=== PATIENT | female | born 1935 | race Caucasian/White ===

== ENCOUNTER 2016-10-29 10:50 | Emergency (ER) | payer MEDICARE ==
--- NOTE | 2016-10-29 11:09 | ED.PDOC ---
History of Present Illness - General Chief Complaint: Neuro Symptoms/Deficits Stated Complaint: altered mental status Time Seen by Provider: 10/29/16 11:08 Source: patient, RN notes reviewed, Vital Signs reviewed, family - grand daughter Exam Limitations: no limitations - History of Present Illness Initial Comments: Granddaughter stated that her grandma was complaining of possible bladder infection yesterday but no medical attention was done took her oxybutynin for her oab but called up her daughter to drive her to hospital and was noted to be dis oriented to place and time by the grandauter then was drove here.On her questioning patient knows where she is able to recognized nurses and knew nurses name and according to patient had bad reaction to her oab medications since her insurance company doesnot pay for any other meds Timing/Duration: other - 2 days ago Severity: moderate Improving Factors: nothing Worsening Factors: nothing Associated Symptoms: denies symptoms Allergies/Adverse Reactions: Allergies Penicillin G Adverse Reaction (Verified 07/25/16 11:18) Home Medications: Ambulatory Orders Anastrozole [Arimidex] 1 mg PO DAILY 07/03/16 Chlorthalidone 12.5 mg PO DAILY 07/03/16 Lisinopril 20 mg PO BID 07/03/16 Meloxicam 15 mg PO DAILY 07/03/16 Metoprolol Tartrate 50 mg PO BID 07/03/16 Potassium Chloride [Micro-K] 20 meq PO DAILY 07/03/16 Pregabalin [Lyrica] 50 mg PO BEDTIME 10/29/16 Triazolam [Halcion] 0.25 mg PO BEDTIME 10/29/16 Review of Systems - Review of Systems Constitutional: States: no symptoms reported EENTM: States: no symptoms reported Respiratory: States: no symptoms reported Cardiology: States: no symptoms reported Gastrointestinal/Abdominal: States: no symptoms reported Genitourinary: States: other - urgency Musculoskeletal: States: no symptoms reported Skin: States: no symptoms reported Neurological: States: see HPI Endocrine: States: no symptoms reported Hematologic/Lymphatic: States: no symptoms reported Past Medical History (General) - Patient Medical History Hx Seizures: No Hx Stroke: Yes - 2010 Hx Dementia: No Hx Asthma: No Hx of COPD: No Hx Cardiac Disorders: Yes Hx Congestive Heart Failure: No Hx Pacemaker: No Hx Hypertension: Yes Hx Thyroid Disease: No Hx Diabetes: No Hx Gastroesophageal Reflux: No Hx Renal Disease: No Hx Cancer: Yes - R breast; chemo; mastectomy Hx of HIV: No Hx Hepatitis C: No Hx MRSA: No Surgical History: cancer surgery - right mastectomy, cholecystectomy, other - hysterectomy - Vaccination History Hx Tetanus, Diphtheria Vaccination: No Hx Influenza Vaccination: Yes - 2014 Hx Pneumococcal Vaccination: Yes - Social History Hx Tobacco Use: Yes - Quit 2009 Hx Chewing Tobacco Use: No Hx Alcohol Use: Yes - wine one glass daily Hx Substance Use: No Hx Substance Use Treatment: No Hx Depression: No Hx Physical Abuse: No Hx Emotional Abuse: No Hx Suspected Abuse: No - Activities of Daily Living Patient Lives Alone: Yes - apartment Grooming Ability: Independent Eating (Feeding) Ability: Independent Toileting Ability: Independent - Female History Patient : No Family Medical History - Family History Mother Family History: No Known Physical Exam - Physical Exam General Appearance: Alert, Comfortable, No apparent distress Eye Exam: bilateral normal Ears, Nose, Throat: hearing grossly normal, normal ENT inspection, normal pharynx Neck: non-tender, full range of motion, supple, normal inspection Respiratory: chest non-tender, lungs clear, normal breath sounds Cardiovascular/Chest: normal peripheral pulses, regular rate, rhythm, no edema, no gallop Peripheral Pulses: radial,right: 2+, radial,left: 2+ Gastrointestinal/Abdominal: normal bowel sounds, non tender, soft, no organomegaly Back Exam: normal inspection, no CVA tenderness, no vertebral tenderness Extremity: normal range of motion, non-tender, normal inspection Neurologic: no motor/sensory deficits, alert, normal mood/affect, oriented x 3 Skin Exam: normal color, warm/dry Lymphatic: no adenopathy Progress - Results/Orders Results/Orders: 10/29/16 11:15 EKG STAT 10/29/16 13:15 TSH [THYROID STIMULATING HORMONE] Stat 10/29/16 13:46 URINALYSIS Stat Laboratory Results WBC 8.1 K/mm3 (4.8-10.8) 10/29/16 12:34 RBC 4.36 M/mm3 (4.20-5.40) 10/29/16 12:34 Hgb 15.2 gm/dL (12.0-16.0) 10/29/16 12:34 Hct 43.9 % (36.0-47.0) 10/29/16 12:34 MCV 100.5 fl (81.0-99.0) H 10/29/16 12:34 MCH 34.7 pg (27.0-31.0) H 10/29/16 12:34 MCHC 34.5 g/dL (33.0-37.0) 10/29/16 12:34 RDW 13.6 % (11.5-14.5) 10/29/16 12:34 Plt Count 226 K/mm3 (130-400) 10/29/16 12:34 MPV 8.7 fl (7.40-10.4) 10/29/16 12:34 Absolute Neuts (auto) 5.90 K/uL (1.8-6.8) 10/29/16 12:34 Absolute Lymphs (auto) 1.30 K/uL (1.0-3.4) 10/29/16 12:34 Absolute Monos (auto) 0.70 K/uL (0.2-0.8) 10/29/16 12:34 Absolute Eos (auto) 0.20 K/uL (0.0-0.4) 10/29/16 12:34 Absolute Basos (auto) 0.10 K/uL (0.0-0.1) 10/29/16 12:34 Neutrophils % 72.4 % (42.0-78.0) 10/29/16 12:34 Lymphocytes % 15.7 % (20.0-50.0) L 10/29/16 12:34 Monocytes % 9.1 % (2.0-9.0) H 10/29/16 12:34 Eosinophils % 2.0 % (1.0-5.0) 10/29/16 12:34 Basophils % 0.8 % (0.0-2.0) 10/29/16 12:34 Sodium 125 mmol/L (135-145) L 10/29/16 12:34 Potassium 3.0 mmol/L (3.6-5.0) L 10/29/16 12:34 Chloride 85 mmol/L (101-111) L 10/29/16 12:34 Carbon Dioxide 31 mmol/L (21-31) 10/29/16 12:34 Anion Gap 12.0 (12-18) 10/29/16 12:34 BUN 10 mg/dL (7-18) 10/29/16 12:34 Creatinine 0.82 mg/dL (0.6-1.3) 10/29/16 12:34 BUN/Creatinine Ratio 12.2 (10-20) 10/29/16 12:34 Random Glucose 132 mg/dL (70-105) H 10/29/16 12:34 Serum Osmolality 252.4 mOsm/L (275-295) L* 10/29/16 12:34 Calcium 10.2 mg/dL (8.4-10.2) 10/29/16 12:34 Total Bilirubin 1.3 mg/dL (0.2-1.0) H 10/29/16 12:34 AST 47 IU/L (10-42) H 10/29/16 12:34 ALT 46 IU/L (10-60) 10/29/16 12:34 Alkaline Phosphatase 62 IU/L (42-121) 10/29/16 12:34 Serum Total Protein 7.2 gm/dL (6.4-8.2) 10/29/16 12:34 Albumin 4.3 g/dl (3.2-5.5) 10/29/16 12:34 Globulin 2.9 gm/dL (2.3-3.5) 10/29/16 12:34 Albumin/Globulin Ratio 1.5 (1.1-1.9) 10/29/16 12:34 - EKG/XRAY/CT EKG: Sinus, nonspecific ST T wave Chg XRAY: chest - no acute abnormality CT: head without old infarct Departure - Departure Clinical Impression: Altered awareness, transient, Hyponatremia with decreased serum osmolality, Drug-induced hypokalemia Time of Disposition: 16:16 - Walked out of her room w/o permission Disposition: Discharge to Home or Self Care Condition: Good Departure Forms: ED Discharge - Pt. Copy, Patient Portal Self Enrollment Instructions: Hyponatremia-Adult Referrals: Jamil Marrero III, MD [Primary Care Provider] - 1-2 Weeks Home Medications: Ambulatory Orders Anastrozole [Arimidex] 1 mg PO DAILY 07/03/16 Chlorthalidone 12.5 mg PO DAILY 07/03/16 Lisinopril 20 mg PO BID 07/03/16 Meloxicam 15 mg PO DAILY 07/03/16 Metoprolol Tartrate 50 mg PO BID 07/03/16 Potassium Chloride [Micro-K] 20 meq PO DAILY 07/03/16 Pregabalin [Lyrica] 50 mg PO BEDTIME 10/29/16 Triazolam [Halcion] 0.25 mg PO BEDTIME 10/29/16 Additional Instructions: DISCONTINUE HYDROCHLORTALIDONE;NEED TO FOLLOW UP WITH PRIMARY MD TOMORROW PATIENT TO CALL FOR APPOINTMENT; RETURN TO EMERGENCY ROOM NEEDED
[2016-10-29 11:14] VITALS: BP 184/95; TEMP 97.1; O2SAT 95
--- NOTE | 2016-10-29 11:33 | CT ---
EXAM DESCRIPTION: CT HEAD WITHOUT IV CONTRAST CLINICAL HISTORY: weakness, altered thought process COMPARISON: July 25, 2016 TECHNIQUE: Non contrast cranial CT was performed. Data was reconstructed for interpretation. FINDINGS: There is evidence of an oold right anterior frontal lobe MCA distribution infarct with resultant encephalomalacia. Significant cerebral involutional changes and cerebellar involutional changes noted. Periventricular white matter disease visualized. No evidence of subdural hematoma or epidural hematoma on today's exam. Vascular calcifications noted. No evidence of mass, mass effect or shift. IMPRESSION: All intracranial findings are stable when compared to prior. Old right MCA distribution infarct. Significantly decreased right forehead hematoma. Electronically signed by: Evelio Virgen MD 10/29/2016 11:31
[2016-10-29] MEDS ORDERED: SODIUM CHLORIDE 0.9% 500ML 500 ML IVS ONE (12:16)
--- NOTE | 2016-10-29 12:32 | RAD ---
Study: Single Frontal View of the Chest. Indication:cough Comparison: July 03, 2016 Impression: Stable left subclavian venous port Cardiomegaly. Stable tortuosity/dilatation thoracic aorta. Lungs hyper expanded. Mild bibasilar atelectasis, otherwise lungs clear. Right axillary surgical clips. Electronically signed by: Chele Salguero MD 10/29/2016 12:30
[2016-10-29] MEDS ORDERED: POTASSIUM CHLORIDE 20 MEQ TAB PO ONE (13:17)
[2016-10-29] MEDS ORDERED: POTASSIUM CHLORIDE 20 MEQ TAB ONE (14:46)
== END 2016-10-29 15:35 | disposition home or self-care (01) ==
LOC: ER 10:50
DX: R40.4 Transient alteration of awareness (principal); E87.1 Hypo-osmolality and hyponatremia; E87.6 Hypokalemia; Z88.0 Allergy status to penicillin; Z79.899 Other long term (current) drug therapy; Z86.73 Personal history of transient ischemic attack (TIA), and cerebral infarction without residual deficits; I10 Essential (primary) hypertension; Z87.891 Personal history of nicotine dependence
CPT/HCPCS: 36415; 70450; 71010; 80053; 81001; 83735; 84443; 85025; 93005; J7040

== ENCOUNTER → 2016-11-27 | Outpatient (CLI) | payer MEDICARE ==
--- NOTE | 2016-11-27 14:59 | MRI ---
EXAM DESCRIPTION: Brain MRI. CLINICAL HISTORY: Cerebral vascular disease COMPARISON: October 29, 2016 TECHNIQUE: Multiplanar, multisequence MR images were acquired without IV contrast. FINDINGS: The midline structures on today's exam are unremarkable. There is both cerebral and cerebellar atrophy. Evidence of an old right MCA distribution infarct. Encephalomalacia noted within the right frontoparietal lobe. Chronic white matter disease noted within bilateral cerebral hemispheres. No acute infarct on today's study. No intracranial mass effect, hydrocephalus, midline shift, hemorrhage, extra-axial fluid collection, abnormal vascular flow void, or restricted diffusion is seen. Calvarial signal is intact. Paranasal sinuses and the mastoid air cells appear clear. Orbits are within normal limits. IMPRESSION: No acute stroke on today's study. There is extensive white matter disease with an old right MCA distribution infarct and resultant encephalomalacia the right frontoparietal lobe. No mass, mass effect or shift. No intracranial hemorrhage. Electronically signed by: Evelio Virgen MD 11/27/2016 14:57
== END | disposition home or self-care (01) ==
LOC: MRI 09:53
PROVIDERS: ATTEND Psychiatry & Neurology Neurology
DX: I67.89 Other cerebrovascular disease (principal); G60.3 Idiopathic progressive neuropathy

== ENCOUNTER → 2016-12-01 | Outpatient (CLI) | payer MEDICARE | LOC: NC 16:50 | PROVIDERS: ATTEND Family Medicine | DX: I10 Essential (primary) hypertension (principal); F32.9 Major depressive disorder, single episode, unspecified; F41.9 Anxiety disorder, unspecified; E78.2 Mixed hyperlipidemia ==

== ENCOUNTER → 2017-01-05 | Outpatient (CLI) | payer MEDICARE | END | disposition home or self-care (01) | LOC: NC 15:27 | PROVIDERS: ATTEND Family Medicine | DX: I10 Essential (primary) hypertension (principal); D51.9 Vitamin B12 deficiency anemia, unspecified; E55.9 Vitamin D deficiency, unspecified; F32.9 Major depressive disorder, single episode, unspecified; F41.9 Anxiety disorder, unspecified; E03.9 Hypothyroidism, unspecified ==

== ENCOUNTER 2017-02-02 10:34 | Emergency (ER) | payer MEDICARE ==
[2017-02-02] MEDS ORDERED: PANTOPRAZOLE SODIUM IV 40 MG VIAL IV ONE (12:12)
[2017-02-02] MEDS ORDERED: ALUMINUM & MAGNESIUM HYDROXIDE 30 ML UD PO ONE (12:12)
[2017-02-02] MEDS ORDERED: SUCRALFATE 1 GM/10 ML 1 GM UD PO ONE (12:12)
--- NOTE | 2017-02-02 13:47 | CT ---
EXAM DESCRIPTION: Abdomen/Pelvis w/Contrast CLINICAL HISTORY: gi bleed COMPARISON: None. TECHNIQUE: Postcontrast CT images of the abdomen and pelvis are obtained. CT scan done according to ALARA (As Low As Reasonably Achievable). FINDINGS: The visualized lung bases are unremarkable. Evidence of right mastectomy liver, spleen, pancreas, and adrenal glands are unremarkable. Cholecystectomy changes are seen. There is expected mild enlargement of the extrahepatic biliary ductal system. There is a fluid and air-filled diverticulum of the second portion of the duodenum extending towards the head of the pancreas measuring 3.2 cm. Moderate atherosclerotic disease is seen. There is mild aneurysmal dilatation of the proximal infrarenal abdominal aorta measuring 2.8 x 2.5 cm.. Kidneys show no abnormal calcifications. No ureteral obstruction. Urinary bladder is unremarkable. Surgical absence of uterus. The ovaries are not identified. Appendix is not definitely seen. No small bowel obstruction. The stomach is contracted. There may be small hiatal hernia. No obvious focal bowel wall thickening or mass is seen. Moderate scattered diverticuli of the descending to sigmoid colon are seen without associated inflammatory changes or fluid collections. Diffuse osteopenia of the osseous structures. No aggressive bony lesions. Severe spondylitic changes. Age-indeterminate anterior wedge compression deformity of L2. IMPRESSION: No acute findings on CT of the abdomen and pelvis. Colon diverticulosis without CT evidence of diverticulitis. No obvious etiology for GI bleed is seen on the abdomen and pelvis. Moderate to severe atherosclerotic disease is noted. Other findings as described in body of report. Abdominal aortic aneurysm measuring 2.8 cm. Recommend follow-up imaging every 5 years. AAA Size: Follow-up Recommendation : 2.6-2.9 cm Every 5 years 3.0-3.4 cm Every 3 years 3.5-3.9 cm Every 1 year 4.0-4.4 cm Every 1 year, vascular consultation recommended 4.5-5.4 cm Every 6 months, vascular consultation recommended >5.5 cm Vascular surgery consultation recommended 1. J Vasc Surg. 2009 Jul;50(4 Suppl):S2-49 2. For aortas with maximum diameter of 2.6-2.9 cm meeting the criteria for AAA (>50% of proximal normal segment) Electronically signed by: Channing Toney MD 02/02/2017 1:46 PM CDT
--- NOTE | 2017-02-02 14:00 | ED.PDOC ---
History of Present Illness - General Chief Complaint: Abdominal Pain Stated Complaint: left abdominal discomfort, nausea, blood in stool Time Seen by Provider: 02/02/17 10:52 Source: patient, RN notes reviewed Exam Limitations: no limitations - History of Present Illness Initial Comments: the patient is an 81-year-old female presenting to the emergency room secondary to 2 bloody bowel movements that were frankly bloody the first occurring late last night and the second earlier this morning. She has had 1 bowel movement since had no blood in it. At the time of the first bloody bowel movement she did get weak and dizzy and mildly diaphoretic. She had no abdominal pain. She does not report any previous history of GI bleeds. She has not had any hemorrhoids. She is not taking significant blood thinners with the exception of aspirin. She has been taking anti-inflammatories in the form of aspirin, Advil and meloxicam with some frequency. no chest pain and no shortness of breath. No syncope. She is feeling okay at this time. Again no abdominal pain. She has not been taking any GI prophylaxis with the anti- inflammatories. Timing/Duration: 24 hours Severity: moderate Improving Factors: nothing Worsening Factors: nothing Associated Symptoms: diaphoresis, loss of appetite, malaise Allergies/Adverse Reactions: Allergies Penicillin G Adverse Reaction (Verified 02/02/17 11:03) Hives Home Medications: Ambulatory Orders Lisinopril 20 mg PO BID 07/03/16 Meloxicam 15 mg PO DAILY 07/03/16 Metoprolol Tartrate 50 mg PO BID 07/03/16 Potassium Chloride [Micro-K] 20 meq PO DAILY 07/03/16 Triazolam [Halcion] 0.25 mg PO BEDTIME 10/29/16 Aspirin [Kelle Low Dose] 81 mg PO DAILY 02/02/17 Famotidine 20 mg PO DAILY #30 tab 02/02/17 Ibuprofen [Advil] 200 - 400 mg PO Q6H PRN 02/02/17 Magnesium [Magnesium] 400 mg PO BID 02/02/17 [place]-3 Fatty Acids [Fish Oil] 1,200 mg PO DAILY 02/02/17 Solifenacin Succinate [Vesicare] 5 mg PO DAILY 02/02/17 Sucralfate Tab [Carafate Tab] 1 gm PO QID #120 tab 02/02/17 Tramadol HCl 50 mg PO .Q6H PRN 02/02/17 Review of Systems - Review of Systems Constitutional: States: malaise EENTM: States: no symptoms reported Respiratory: States: no symptoms reported Cardiology: States: no symptoms reported Gastrointestinal/Abdominal: States: see HPI Genitourinary: States: no symptoms reported Musculoskeletal: States: no symptoms reported Skin: States: no symptoms reported Neurological: States: no symptoms reported Hematologic/Lymphatic: States: blood clots - in the stool All other Systems: No Change from Baseline Past Medical History (General) - Patient Medical History Hx Seizures: No Hx Stroke: Yes - 2009 Hx Dementia: No Hx Asthma: No Hx of COPD: No Hx Cardiac Disorders: Yes Hx Congestive Heart Failure: No Hx Pacemaker: No Hx Hypertension: Yes Hx Thyroid Disease: No Hx Diabetes: No Hx Gastroesophageal Reflux: No Hx Renal Disease: No Hx Cancer: Yes - breast Hx of HIV: No Hx Hepatitis C: No Hx MRSA: No Surgical History: appendectomy, Hysterectomy - Vaccination History Hx Tetanus, Diphtheria Vaccination: No Hx Influenza Vaccination: Yes - 2015 Hx Pneumococcal Vaccination: Yes - 2015 - Social History Hx Tobacco Use: No Hx Chewing Tobacco Use: No Hx Alcohol Use: Yes - wine one glass daily Hx Substance Use: No Hx Substance Use Treatment: No Hx Depression: No Hx Physical Abuse: No Hx Emotional Abuse: No Hx Suspected Abuse: No - Female History Patient is a Female of Child Bearing Age (10 -59 yrs old): No Patient : No Family Medical History - Family History Mother Family History: No Known Living Status: Still Living Cause of : old age Physical Exam - Physical Exam General Appearance: Alert, Comfortable, No apparent distress Eye Exam: bilateral normal Ears, Nose, Throat: normal ENT inspection, normal pharynx Neck: non-tender, full range of motion, supple Respiratory: chest non-tender, lungs clear, normal breath sounds, no respiratory distress, no accessory muscle use Cardiovascular/Chest: normal peripheral pulses, no edema, other - regular rate Peripheral Pulses: radial,right: 2+, radial,left: 2+, dorsalis pedis,right: 2+, dorsalis pedis,left: 2+ Gastrointestinal/Abdominal: non tender, soft Rectal Exam: other - normal tone. No earl blood in the rectal vault. There is a skin tag from a previous hemorrhoid but no evidence of any bleeding hemorrhoids Back Exam: normal inspection, no CVA tenderness, no vertebral tenderness Extremity: normal range of motion, non-tender, normal inspection, no pedal edema , normal capillary refill Neurologic: alert, normal mood/affect, oriented x 3 Skin Exam: normal color Comments: Vital Signs - 24 hr 02/02/17 02/02/17 10:44 11:50 Temperature 97.5 F L Pulse Rate [ 64 60 Left Radial] Respiratory 20 20 Rate Blood Pressure 163/96 150/78 [Left Arm] O2 Sat by Pulse 94 L 95 Oximetry Progress - Progress Progress: 02/02/17 14:02 the patient is an 81-year-old female presenting after 2 episodes of frankly bloody bowel movements witnessed by her home health nursing. No evidence of significant anemia on the blood work. Vital signs stable. The patient has had one to 2 bowel movements since then with no earl blood. Most likely source is upper intestinal given her history of NSAID use. She is to avoid aspirin, meloxicam, Aleve and Advil for the next couple of weeks. She will be written for Carafate and Pepcid for the near future. She needs to follow back up with home health and Dr. Marrero later this week. The patient is leaving AGAINST MEDICAL ADVICE. We do recommend that she stay and she does understand the risk of not being admitted for observation. She reports that she is going to have someone stay with her tonight. ER warnings were given for any worsening. Maalox can also be used for any gastritis symptoms. - Results/Orders Results/Orders: Laboratory Tests 02/02/17 11:30 WBC 8.7 RBC 3.41 L Hgb 12.3 Hct 35.6 L MCV 104.6 H MCH 36.0 H MCHC 34.4 RDW 14.4 Plt Count 154 MPV 9.2 Absolute Neuts (auto) 6.30 Absolute Lymphs (auto) 1.60 Absolute Monos (auto) 0.50 Absolute Eos (auto) 0.20 Absolute Basos (auto) 0.10 Neutrophils % 72.3 Lymphocytes % 18.0 L Monocytes % 6.2 Eosinophils % 2.5 Basophils % 1.0 PT 11.3 INR 1.000 PTT (SP) 27.4 Sodium 133 L Potassium 3.8 Chloride 97 L Carbon Dioxide 28 Anion Gap 11.8 L BUN 46 H Creatinine 0.91 BUN/Creatinine Ratio 50.5 H Random Glucose 119 H Serum Osmolality 279.4 Calcium 10.2 Total Bilirubin 0.7 AST 28 ALT 25 Alkaline Phosphatase 52 Serum Total Protein 6.2 L Albumin 3.7 Globulin 2.5 Albumin/Globulin Ratio 1.5 Amylase 26 L [address] scan of the abdomen and pelvis shows significant atherosclerosis and a very mild aortic aneurysm. No evidence of source of the GI bleed. Departure - Departure Clinical Impression: GI bleed due to NSAIDs Disposition: Left Against Medical Advice Condition: Serious Instructions: DI for Gastrointestinal Bleeding Diet: bland diet Activity: increase activity as tolerated Referrals: Jamil Marrero III, MD [Primary Care Provider] - 1-5 Days Prescriptions: Sucralfate Tab [Carafate Tab] 1 gm PO QID #120 tab Famotidine 20 mg PO DAILY #30 tab Home Medications: Ambulatory Orders Lisinopril 20 mg PO BID 07/03/16 Meloxicam 15 mg PO DAILY 07/03/16 Metoprolol Tartrate 50 mg PO BID 07/03/16 Potassium Chloride [Micro-K] 20 meq PO DAILY 07/03/16 Triazolam [Halcion] 0.25 mg PO BEDTIME 10/29/16 Aspirin [Kelle Low Dose] 81 mg PO DAILY 02/02/17 Famotidine 20 mg PO DAILY #30 tab 02/02/17 Ibuprofen [Advil] 200 - 400 mg PO Q6H PRN 02/02/17 Magnesium [Magnesium] 400 mg PO BID 02/02/17 [place]-3 Fatty Acids [Fish Oil] 1,200 mg PO DAILY 02/02/17 Solifenacin Succinate [Vesicare] 5 mg PO DAILY 02/02/17 Sucralfate Tab [Carafate Tab] 1 gm PO QID #120 tab 02/02/17 Tramadol HCl 50 mg PO .Q6H PRN 02/02/17 Additional Instructions: the patient is an 81-year-old female presenting after 2 episodes of frankly bloody bowel movements witnessed by her home health nursing. No evidence of significant anemia on the blood work. Vital signs stable. The patient has had one to 2 bowel movements since then with no earl blood. Most likely source is upper intestinal given her history of NSAID use. She is to avoid aspirin, meloxicam, Aleve and Advil for the next couple of weeks. She will be written for Carafate and Pepcid for the near future. She needs to follow back up with home health and Dr. Marrero later this week. The patient is leaving AGAINST MEDICAL ADVICE. We do recommend that she stay and she does understand the risk of not being admitted for observation. She reports that she is going to have someone stay with her tonight. ER warnings were given for any worsening. Maalox can also be used for any gastritis symptoms.
[2017-02-02 14:35] VITALS: BP 148/72; TEMP 97; O2SAT 96
== END 2017-02-02 14:10 | disposition left against medical advice (07) ==
LOC: ER 10:34
DX: K92.2 Gastrointestinal hemorrhage, unspecified (principal); I10 Essential (primary) hypertension; I71.4 Abdominal aortic aneurysm, without rupture; Z79.1 Long term (current) use of non-steroidal anti-inflammatories (NSAID); Z86.73 Personal history of transient ischemic attack (TIA), and cerebral infarction without residual deficits; Z85.3 Personal history of malignant neoplasm of breast; Z79.899 Other long term (current) drug therapy; Z79.82 Long term (current) use of aspirin; Z88.0 Allergy status to penicillin

== ENCOUNTER → 2017-02-11 | Outpatient (CLI) | payer MEDICARE | LOC: NC 13:30 | PROVIDERS: ATTEND Family Medicine | DX: C50.411 Malignant neoplasm of upper-outer quadrant of right female breast (principal); M81.0 Age-related osteoporosis without current pathological fracture; E55.9 Vitamin D deficiency, unspecified; Z17.0 Estrogen receptor positive status [ER+] ==

== ENCOUNTER → 2017-02-18 | Outpatient (CLI) | payer MEDICARE ==
--- NOTE | 2017-02-19 09:42 | NM ---
EXAM DESCRIPTION: Bone Scan, Whole Body CLINICAL HISTORY: 81 years Female, BREAST CA TECHNIQUE: Whole body scintigraphic imaging was performed after the patient was administered 29 mCi of technetium 99m MDP. Soft tissue uptake noted within bilateral kidneys and the urinary bladder. Increased uptake noted within the right shoulder, right elbow, lateral right knee are these are likely degenerative. There is uptake noted within the thoracic spine at possibly T10, T7 and possibly T4. Abnormal uptake within what is likely L5. IMPRESSION: Today's exam demonstrates abnormal uptake within the thoracic spine and lumbar spine. While this could be due to degenerative change I would recommend dedicated imaging to rule out the possibility of metastatic disease of the spine. The remaining uptake noted in the body of the findings likely secondary to degenerative change. Electronically signed by: Evelio Virgen MD 02/19/2017 9:42 AM CDT
== END ==
LOC: NM 08:10
PROVIDERS: ATTEND Internal Medicine Hematology & Oncology
DX: C50.411 Malignant neoplasm of upper-outer quadrant of right female breast (principal)

== ENCOUNTER → 2017-03-02 | Outpatient (CLI) | payer MEDICARE ==
--- NOTE | 2017-03-03 01:15 | MRI ---
Procedure: MR LUMBAR SPINE WITHOUT THEN WITH IV CONTRAST, MR THORACIC SPINE WITHOUT THEN WITH IV CONTRAST Exam Date: 03/02/2017 9:20 AM CDT Ordering Provider: SULEIMAN ALTAMIRANO Clinical Indication: DORSALGIA Comparison: None Technique: Multiplanar MRI of the thoracic spine was obtained with and without the intravenous administration of contrast medium. Findings: There is normal signal within the marrow of the thoracic vertebral bodies. There is no marrow signal abnormality to suggest fracture or neoplasm. Multiple degenerative disc bulges and degenerative anterolisthesis are noted particularly on T2 on T3. There is a broad-based disc bulge at T4-T5, T6-T7, and T7-T8.. There is trace degenerative anterolisthesis of T8 on T9 with disc uncovering. There is no spinal canal stenosis identified or mass effect on the thoracic cord. However, there is mild to moderate neural foraminal stenosis of T8 on T9 bilaterally as well as at T2 and T3. The thoracic spinal cord is of normal signal and contour. The conus is of normal signal and contour and terminates at the T12. There is no paraspinal mass. There is no prevertebral fluid collection. No pathologic enhancement on postcontrast imaging. 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 No abnormal cord signal or evidence of pathologic enhancement. Procedure: MR LUMBAR SPINE WITHOUT THEN WITH IV CONTRAST, MR THORACIC SPINE WITHOUT THEN WITH IV CONTRAST Exam Date: 03/02/2017 9:20 AM CDT Ordering Provider: SULEIMAN ALTAMIRANO Clinical Indication: DORSALGIA Comparison: None Technique: Multiplanar, multisequence MR images of the lumbar spine were obtained with and without contrast. Findings: Moderate anterior wedge compression deformity of L2. Otherwise, there is no acute fractures or traumatic dislocations. Spinal cord terminates at the T12-L1 and is normal in signal morphology. T12-L1: Unremarkable. L1-L2: Anterolisthesis of L1 with broad-based disc bulge. Mild facet arthrosis. No spinal canal or foraminal stenosis however. L2-L3: Retrolisthesis of L2 on L3 with advanced facet arthrosis and bilateral facet joint effusions. This contributes to moderate spinal canal and bilateral subarticular recess stenosis. There is also severe right neural foraminal stenosis. Left neural foramen is patent. L3-L4: Trace retrolisthesis with broad-based disc bulge. Mild overall spinal canal stenosis. Marked ligamentum flavum hypertrophy. There is severe right neural foraminal stenosis. Left neural foramen is patent. L4-L5: Advanced broad-based disc bulge with large bilateral facet effusions. There is marked ligamentum flavum hypertrophy and advanced facet arthrosis. Findings contribute to severe spinal canal stenosis with redundancy of the cauda equina. There is also severe left neural foraminal stenosis. There is mild right neural foraminal stenosis. L5-S1: Degenerative anterolisthesis secondary to advanced facet arthrosis. There is a intracanal right-sided facet synovial cyst. Findings contribute to severe right more so than left spinal canal stenosis. There is severe left neural foraminal stenosis. Mild right neural foraminal stenosis. Prevertebral and paravertebral soft tissues are unremarkable. Postcontrast images demonstrate no pathologic enhancement. Impression: 1. Chronic L2 compression fracture as above. There is no acute compression fractures identified. 2. Advanced lumbar spondylosis with multilevel severe foraminal and spinal canal stenosis as outlined above. Multilevel degenerative listhesis as well. Electronically signed by: Srinivas Wilhelm MD 03/03/2017 1:15 AM CDT
== END | disposition home or self-care (01) ==
LOC: MRI 08:59
PROVIDERS: ATTEND Internal Medicine Hematology & Oncology
DX: M47.9 Spondylosis, unspecified (principal); M48.06 Spinal stenosis, lumbar region

== ENCOUNTER → 2017-04-06 | Outpatient (CLI) | payer MEDICARE | END | disposition home or self-care (01) | LOC: NC 12:07 | PROVIDERS: ATTEND Family Medicine | DX: F32.9 Major depressive disorder, single episode, unspecified (principal); E78.2 Mixed hyperlipidemia; I10 Essential (primary) hypertension; K21.9 Gastro-esophageal reflux disease without esophagitis; F41.9 Anxiety disorder, unspecified; D50.8 Other iron deficiency anemias; E55.9 Vitamin D deficiency, unspecified; D51.0 Vitamin B12 deficiency anemia due to intrinsic factor deficiency ==

== ENCOUNTER → 2017-05-27 | Outpatient (CLI) | payer MEDICARE ==
--- NOTE | 2017-05-28 09:28 | RAD ---
EXAM DESCRIPTION: Shoulder,Right 2 or More Views CLINICAL HISTORY: 82 years Female, PAIN COMPARISON: Chest December 30, 2015 FINDINGS: Again seen is an old healed right humeral head/neck fracture, unchanged from the patient's previous chest radiograph. There are a few old healed right-sided rib fractures. No acute fracture or malalignment. Slightly widened appearance of the right AC joint is noted, but this is likely not acute. There is no overlying soft tissue swelling. Postoperative changes are noted in the right axilla. A left-sided central venous catheter is only partially visualized. No lytic or cirrhotic bone lesion. IMPRESSION: Evidence of remote trauma, but no acute right shoulder abnormality or evidence of bony metastatic disease. Electronically signed by: Otoniel Nguyen MD 05/28/2017 9:27 AM CDT Workstation: [email or web address]
--- NOTE | 2017-05-28 09:30 | RAD ---
EXAM DESCRIPTION: Elbow,Right 2 Views CLINICAL HISTORY: 82 years Female, PAIN COMPARISON: None. FINDINGS: 3 views of the right elbow show no acute fracture or malalignment. Degenerative calcifications are noted without significant joint space narrowing. No right elbow joint effusion. No radiopaque foreign body or soft tissue gas. IMPRESSION: Degenerative changes, but no acute right elbow abnormality. Electronically signed by: Otoniel Nguyen MD 05/28/2017 9:28 AM CDT [facility]: [id number]
== END | disposition home or self-care (01) ==
LOC: RAD 11:24
PROVIDERS: ATTEND Nurse Practitioner Acute Care
DX: M25.521 Pain in right elbow (principal); M25.511 Pain in right shoulder

== ENCOUNTER 2017-06-15 11:59 | Emergency (ER) | payer MEDICARE ==
[2017-06-15 12:23] VITALS: TEMP 98.3
[2017-06-15] MEDS ORDERED: HYDROcodone 7.5MG/APAP 325MG 1 EA TAB PO ONE (12:45)
--- NOTE | 2017-06-15 13:23 | RAD ---
EXAM DESCRIPTION: Lumbar spine, 3 views CLINICAL HISTORY: Fall injury. Lumbar spine pain FINDINGS/ IMPRESSION: Comparison 03/02/2017 lumbar spine MRI Severe compression fracture deformity L2 not significantly changed. Mild compression deformity of the right lateral L3 not significantly changed. There is no diagnostic acute lumbar spine fracture Concave superior endplate compression deformity T12 which appears new from previous MRI. There is also age indeterminate T10 compression deformity seen on the edge of the [id number] Multilevel disc and facet degeneration with levoscoliosis Sacral neural foraminal lines are intact Electronically signed by: Maximo Franklin MD 06/15/2017 1:22 PM CDT
--- NOTE | 2017-06-15 13:25 | ED.PDOC ---
History of Present Illness - General Chief Complaint: Trauma Stated Complaint: back pain Time Seen by Provider: 06/15/17 12:44 Source: patient, family Exam Limitations: no limitations - History of Present Illness Initial Comments: PT PRESENTS TO THE ED WITH COMPLAINT OF LOW BACK PAIN THAT HAS PROGRESSIVELY GOTTEN WORSE. PT REPORTS FALLING 2 DAYS AGO FROM STANDING POSITION. PT DENIES BOWEL OR BLADDER DYSFUNCTION. SHE REPORTS TAKING IBUPROFEN THIS MORNING WITHOUT RELIEF. Severity: moderate Improving Factors: immobilization, rest Worsening Factors: movement Associated Symptoms: denies symptoms Allergies/Adverse Reactions: Allergies Codeine Allergy (Verified 06/15/17 12:20) Penicillin G Adverse Reaction (Verified 02/02/17 11:03) Hives Home Medications: Ambulatory Orders Lisinopril 20 mg PO BID 07/03/16 Meloxicam 15 mg PO DAILY 07/03/16 Metoprolol Tartrate 50 mg PO BID 07/03/16 Potassium Chloride [Micro-K] 20 meq PO DAILY 07/03/16 Triazolam [Halcion] 0.25 mg PO BEDTIME 10/29/16 Aspirin [Kelle Low Dose] 81 mg PO DAILY 02/02/17 Famotidine 20 mg PO DAILY #30 tab 02/02/17 Ibuprofen [Advil] 200 - 400 mg PO Q6H PRN 02/02/17 Magnesium [Magnesium] 400 mg PO BID 02/02/17 [place]-3 Fatty Acids [Fish Oil] 1,200 mg PO DAILY 02/02/17 Solifenacin Succinate [Vesicare] 5 mg PO DAILY 02/02/17 Sucralfate Tab [Carafate Tab] 1 gm PO QID #120 tab 02/02/17 Tramadol HCl 50 mg PO .Q6H PRN 02/02/17 Ondansetron [Zofran Odt] 8 mg PO TID PRN #20 tab 06/15/17 Tramadol-Acetaminophen [Ultracet] 1 - 2 tab PO Q6HR PRN #30 tab 06/15/17 Review of Systems - Review of Systems Constitutional: Denies: chills, fever Respiratory: Denies: cough, short of breath Cardiology: Denies: chest pain, palpitations Gastrointestinal/Abdominal: Denies: abdominal pain, diarrhea, nausea Musculoskeletal: States: see HPI, back pain. Denies: joint pain, joint swelling Skin: Denies: change in color, lesions Past Medical History (General) - Patient Medical History Hx Seizures: No Hx Stroke: Yes - 2009 Hx Dementia: No Hx Asthma: No Hx of COPD: No Hx Cardiac Disorders: Yes Hx Congestive Heart Failure: No Hx Pacemaker: No Hx Hypertension: Yes Hx Thyroid Disease: No Hx Diabetes: No Hx Gastroesophageal Reflux: No Hx Renal Disease: No Hx Cancer: Yes - breast Hx of HIV: No Hx Hepatitis C: No Hx MRSA: No Surgical History: cholecystectomy, Hysterectomy, other - Vaccination History Hx Tetanus, Diphtheria Vaccination: No Hx Influenza Vaccination: Yes - 2015 Hx Pneumococcal Vaccination: Yes - 2016 - Social History Hx Tobacco Use: No Hx Chewing Tobacco Use: No Hx Alcohol Use: Yes - wine one glass daily Hx Substance Use: No Hx Substance Use Treatment: No Hx Depression: No Hx Physical Abuse: No Hx Emotional Abuse: No Hx Suspected Abuse: No - Activities of Daily Living Hospice Agency (if applicable):: None - Female History Patient is a Female of Child Bearing Age (10 -59 yrs old): No Patient : No Family Medical History - Family History Mother Family History: No Known Living Status: Still Living Cause of : old age Physical Exam - Physical Exam General Appearance: Alert, No apparent distress Ears, Nose, Throat: normal ENT inspection Neck: normal inspection Respiratory: lungs clear, normal breath sounds, no respiratory distress Cardiovascular/Chest: regular rate, rhythm, no murmur Back Exam: normal inspection, vertebral tenderness - LUMBAR, BILATERAL PARALUMBAR TENDERNESS Progress - EKG/XRAY/CT XRAY: LUMBAR Xray Comments: CHRONIC L2/L3 DEFORMITY, AGE INDETERMINATE T10/T12 COMPRESSION FX. Departure - Departure Clinical Impression: Compression fracture of thoracic vertebra, Fall at home Time of Disposition: 13:54 Disposition: Discharge to Home or Self Care Condition: Fair Departure Forms: ED Discharge - Pt. Copy, Patient Portal Self Enrollment Instructions: DI for Vertebral Fracture Activity: ambulate only with walker, walking as tolerated Referrals: Jamil Marrero III, MD [Primary Care Provider] - 1-2 Weeks JL POLK MD [Consulting Staff] - 1-5 Days Prescriptions: Tramadol-Acetaminophen [Ultracet] 1 - 2 tab PO Q6HR PRN #30 tab PRN Reason: Pain Ondansetron [Zofran Odt] 8 mg PO TID PRN #20 tab PRN Reason: Nausea/Vomiting Home Medications: Ambulatory Orders Lisinopril 20 mg PO BID 07/03/16 Meloxicam 15 mg PO DAILY 07/03/16 Metoprolol Tartrate 50 mg PO BID 07/03/16 Potassium Chloride [Micro-K] 20 meq PO DAILY 07/03/16 Triazolam [Halcion] 0.25 mg PO BEDTIME 10/29/16 Aspirin [Kelle Low Dose] 81 mg PO DAILY 02/02/17 Famotidine 20 mg PO DAILY #30 tab 02/02/17 Ibuprofen [Advil] 200 - 400 mg PO Q6H PRN 02/02/17 Magnesium [Magnesium] 400 mg PO BID 02/02/17 [place]-3 Fatty Acids [Fish Oil] 1,200 mg PO DAILY 02/02/17 Solifenacin Succinate [Vesicare] 5 mg PO DAILY 02/02/17 Sucralfate Tab [Carafate Tab] 1 gm PO QID #120 tab 02/02/17 Tramadol HCl 50 mg PO .Q6H PRN 02/02/17 Ondansetron [Zofran Odt] 8 mg PO TID PRN #20 tab 06/15/17 Tramadol-Acetaminophen [Ultracet] 1 - 2 tab PO Q6HR PRN #30 tab 06/15/17
[2017-06-15] MEDS ORDERED: ONDANSETRON ODT 8 MG TAB SL ONE (13:52)
[2017-06-15 14:58] VITALS: BP 171/97; O2SAT 95
== END 2017-06-15 14:55 | disposition home or self-care (01) ==
LOC: ER 11:59
DX: S22.089A Unspecified fracture of T11-T12 vertebra, initial encounter for closed fracture (principal); I10 Essential (primary) hypertension; Z85.3 Personal history of malignant neoplasm of breast; Z88.6 Allergy status to analgesic agent; Z88.0 Allergy status to penicillin; Z86.73 Personal history of transient ischemic attack (TIA), and cerebral infarction without residual deficits; Z79.899 Other long term (current) drug therapy; Z79.82 Long term (current) use of aspirin; W19.XXXA Unspecified fall, initial encounter; Y92.9 Unspecified place or not applicable

== ENCOUNTER → 2017-08-12 | Outpatient (CLI) | payer MEDICARE | END | disposition home or self-care (01) | LOC: GMAL 11:28 | PROVIDERS: ATTEND Family Medicine | DX: R30.0 Dysuria (principal) ==

== ENCOUNTER → 2018-01-06 | Outpatient (CLI) | payer MEDICARE | LOC: GMAL 17:32 | PROVIDERS: ATTEND Family Medicine | DX: E55.9 Vitamin D deficiency, unspecified (principal) ==

== ENCOUNTER → 2018-01-26 | Outpatient (CLI) | payer MEDICARE | LOC: GMAL 10:47 | PROVIDERS: ATTEND Family Medicine | DX: D51.3 Other dietary vitamin B12 deficiency anemia (principal); R53.82 Chronic fatigue, unspecified; E55.9 Vitamin D deficiency, unspecified ==

== ENCOUNTER → 2018-08-18 | Outpatient (CLI) | payer MEDICARE | LOC: NC 10:09 | PROVIDERS: ATTEND Family Medicine | DX: I11.9 Hypertensive heart disease without heart failure (principal); E11.9 Type 2 diabetes mellitus without complications; F03.90 Unspecified dementia, unspecified severity, without behavioral disturbance, psychotic disturbance, mood disturbance, and anxiety; Z87.440 Personal history of urinary (tract) infections ==

== ENCOUNTER → 2018-09-29 | Outpatient (CLI) | payer MEDICARE ==
--- NOTE | 2018-09-29 11:05 | MRI ---
EXAM DESCRIPTION: Brain w/wo Contrast: Magnetic Resonance Imaging. CLINICAL HISTORY: 83 years Female DEMENTIA COMPARISON: MRI scan of the brain without contrast 11/27/2016. TECHNIQUE: Multiplanar, high-field . MRI, multiple conventional sequences, without and with gadolinium IV contrast. No adverse reactions. Multiple axial diffusion sequences. FINDINGS: large area of encephalomalacia in the superior right temporal lobe associated with gliosis. No abnormal contrast enhancement mass effect or hemorrhage. Stable since the prior study. Confluent regions of hyperintense FLAIR and T2-weighted signal in the periventricular white matter and santillan-white matter junctions of the cerebral hemispheres, more right than left. Also bilateral solitary foci of hyperintense FLAIR and T2-weighted signal more in the subcortical white matter. Not associated with hemorrhage, abnormal contrast enhancement, or diffusion restriction. Gliosis in the lateral right basal ganglia, adjacent to right sylvian fissure and encephalomalacia. No hemorrhage, no cerebral edema, no diffusion restriction. Normal contrast enhancement. Normal signal in the brainstem and cerebellar hemispheres. No hemorrhage, no cerebral edema, no mass-effect. Normal contrast enhancement. Concordance of the diffusion and non-diffusion sequences with no evidence of acute or subacute infarction. Cortical sulci, ventricles, and other CSF spaces, and the subdural spaces are otherwise physiologic for patient's age and normally configured. No effacement or displacement. No midline shift. No extra-axial hemorrhage. Normal contrast enhancement. Normal flow signal void in the major vessels of the yurok Carter, and the venous sinuses. IACs are symmetric bilaterally. Normal signal in the bilateral mastoid air cells. No mass effect in the bilateral Cerebellopontine angles. Normal contrast enhancement. Pituitary gland occupies less than half of the sella. Normal contrast enhancement. Base of the cerebellar tonsils is at the level of the foramen magnum. Small polyp or cyst in the inferior right maxillary antrum of the paranasal sinuses. Normal contrast enhancement. The bony calvarium is intact. IMPRESSION: 1. Region of encephalomalacia superior right temporal lobe with no mass effect, no hemorrhage, no diffusion restriction, and no abnormal contrast enhancement. Surrounded by gliosis. Stable since the prior study. 2. No acute regions of infarction, hemorrhage, mass effect, cerebral edema, or abnormal contrast enhancement. No subacute infarction within normal diffusion restriction. Chronic gliosis in the lateral right basal ganglia. 3. Small polyp or cyst in the base of the right maxillary antrum. Small pituitary gland is stable. Electronically signed by: Ankit Muñoz MD 09/29/2018 11:04 AM [facility]
== END ==
LOC: MRI 08:40
PROVIDERS: ATTEND Psychiatry & Neurology Neurology
DX: Z01.812 Encounter for preprocedural laboratory examination (principal); G31.83 Neurocognitive disorder with Lewy bodies; I66.01 Occlusion and stenosis of right middle cerebral artery; J33.8 Other polyp of sinus; G93.89 Other specified disorders of brain